=== PATIENT | female | born 1965 | race Hispanic/Latino ===

== ENCOUNTER 2023-05-23 17:04 | Emergency (ER) | payer OTHER ==
--- OUTSIDE RECORDS SUMMARY | 2023-05-23 17:08 | XMS REPORT | Continuity of Care Document ---
:1965 Author Organization [facility] t Address [address] [place] [address] [place] [id number] Care Team Providers Name Role Phone DOCTOR UNASSIGNED, NO NAME Primary Care Physician UnavailJing Concepcion Attending Clinician Pob, Adc Lab Main Attending Clinician Unavailable JING RICHEY Attending Clinician Unavailable Doctor Unassigned, [place] Attending Clinician Unavailable JING RICHEY Admitting Clinician Unavailable Payers Payer Name Policy Type Policy Number Effective Date Expiration Date S ource Problems This patient has no known problems. Allergies, Adverse Reactions, Alerts Allergy Allergy Status Severity Reaction(s) Onset Inactive Treating Comm ents Source Name Type Date Date Clinician Sulfa Propensi Active Rash Univers (Sulfona ty to 3-07 ity of mide adverse 00:00: [place] Antibiot reaction 00 Medica l ics) s Branch SULFA Drug Active Rash Univers (SULFONA Class 3-07 ity of MIDE 00:00: [place] ANTIBIOT 00 Medical ICS) Branch Social History Social Habit Start Date Stop Date Quantity Comments Source Exposure to Not sure [facility] SARS-CoV-2 [place] [facility] (event) Branch Sex Assigned At Universit y of [facility] Branch Alcohol intake 2019-05-13 2019-05-13 Current University 00:00:00 00:00:00 non-drinker of [facility] alcohol Branch (finding) Smoking Status Start Date Stop Date Source Never smoker [facility] Medical Branch Medications Ordered Filled Start Stop Current Ordering Indication Dosage Frequency Signature Comments Components Source Medication Medication Date Date Medication? Clinician (SIG) Name Name atorvastati Yes 20mg Take 20 mg Univers n (LIPITOR) 3-07 by mouth ity of 20 mg 21:54: at [place] tablet 02 bedtime. Medical Branch levothyroxi 0 Yes 50ug Take 50 Uni vers ne 3-07 mcg by ity of (SYNTHROID) 21:54: mouth [place] 50 mcg 02 every Medical tablet morning. Branch Cholecalcif Yes Take by Uni vers ankita, 3-07 mouth ity of Vitamin D3, 21:54: weekly. Dann as (REPLESTA) 02 Medical 50,000 unit Branch [facility] IBUPROFEN Yes Take by Unive rs (MOTRIN 3-07 mouth. ity of ORAL) 21:54: Indication [place] 02 s: as Medical needed Branch atorvastati Yes 20mg Take 20 mg Univers n (LIPITOR) 3-07 by mouth ity of 20 mg 21:54: at [place] tablet 02 bedtime. Medical Branch levothyroxi Yes 50ug Take 50 Uni vers ne 3-07 mcg by ity of (SYNTHROID) 21:54: mouth [place] 50 mcg 02 every Medical tablet morning. Branch Cholecalcif Yes Take by Uni vers ankita, 3-07 mouth ity of Vitamin D3, 21:54: weekly. Dann as (REPLESTA) 02 Medical 50,000 unit Branch [facility] IBUPROFEN Yes Take by Unive rs (MOTRIN 3-07 mouth. ity of ORAL) 21:54: Indication [place] 02 s: as Medical needed Branch atorvastati Yes 20mg Take 20 mg Univers n (LIPITOR) 3-07 by mouth ity of 20 mg 21:54: at [place] tablet 02 bedtime. Medical Branch levothyroxi Yes 50ug Take 50 Uni vers ne 3-07 mcg by ity of (SYNTHROID) 21:54: mouth [place] 50 mcg 02 every Medical tablet morning. Branch Cholecalcif Yes Take by Uni vers ankita, 3-07 mouth ity of Vitamin D3, 21:54: weekly. Dann as (REPLESTA) 02 Medical 50,000 unit Branch [facility] IBUPROFEN Yes Take by Unive rs (MOTRIN 3-07 mouth. ity of ORAL) 21:54: Indication [place] 02 s: as Medical needed Branch atorvastati Yes 20mg Take 20 mg Univers n (LIPITOR) 3-07 by mouth ity of 20 mg 21:54: at [place] tablet 02 bedtime. Medical Branch levothyroxi Yes 50ug Take 50 Uni vers ne 3-07 mcg by ity of (SYNTHROID) 21:54: mouth [place] 50 mcg 02 every Medical tablet morning. Branch Cholecalcif Yes Take by Uni vers ankita, 3-07 mouth ity of Vitamin D3, 21:54: weekly. Dann as (REPLESTA) 02 Medical 50,000 unit Branch [facility] IBUPROFEN Yes Take by Unive rs (MOTRIN 3-07 mouth. ity of ORAL) 21:54: Indication [place] 02 s: as Medical needed Branch atorvastati Yes 20mg Take 20 mg Univers n (LIPITOR) 3-07 by mouth ity of 20 mg 21:54: at [place] tablet 02 bedtime. Medical Branch levothyroxi Yes 50ug Take 50 Uni vers ne 3-07 mcg by ity of (SYNTHROID) 21:54: mouth [place] 50 mcg 02 every Medical tablet morning. Branch Cholecalcif Yes Take by Uni vers ankita, 3-07 mouth ity of Vitamin D3, 21:54: weekly. Dann as (REPLESTA) 02 Medical 50,000 unit Branch [facility] IBUPROFEN Yes Take by Unive rs (MOTRIN 3-07 mouth. ity of ORAL) 21:54: Indication [place] 02 s: as Medical needed Branch atorvastati Yes 20mg Take 20 mg Univers n (LIPITOR) 3-07 by mouth ity of 20 mg 21:54: at [place] tablet 02 bedtime. Medical Branch levothyroxi Yes 50ug Take 50 Uni vers ne 3-07 mcg by ity of (SYNTHROID) 21:54: mouth [place] 50 mcg 02 every Medical tablet morning. Branch Cholecalcif Yes Take by Uni vers ankita, 3-07 mouth ity of Vitamin D3, 21:54: weekly. Dann as (REPLESTA) 02 Medical 50,000 unit Branch [facility] IBUPROFEN Yes Take by Unive rs (MOTRIN 3-07 mouth. ity of ORAL) 21:54: Indication [place] 02 s: as Medical needed Branch Procedures Procedure Date / Time Performing Clinician Source Performed BI SCREENING TOMOSYNTHESIS 2020-07-13 20:52:00 Requisition, Vik r [facility] BILATERAL Medical Branch US PELVIS COMPLETE WITH 2020-06-30 23:47:27 Requisition, Paper [facility] [place] TRANSVAGINAL Medical Branch US RETROPERITONEAL 2020-06-24 19:39:38 Requisition, Paper [facility] COMPLETE Medical Branch ASSIGNMENT OF BENEFITS 2020-06-21 19:09:00 Doctor Unassigned, Un [facility] [place] Medical Branch Encounters Start End Encounter Admission Attending Care Care Encounter Source Date/Time Date/Time Type Type Clinicians Facility Department ID 2020-07-13 2020-07-13 [facility] [id number] Univers 14:20:00 23:59:00 Encounter Jing Arik [id number] ity of [place] [id number] [facility] [id number] [facility] 800 Branch 2020-07-13 2020-07-13 Fiscal Services Manager Conrado, Adc Lab Main [facility] [id number] Univers 09:58:48 10:13:48 Visit Jing Richey Arik [id number] ity [place] [id number] [facility] Professio [id number] [place] dical [facility] 353 Branch Building 2020-07-13 2020-07-13 Outpatient R [facility] [id number] Univers 00:00:00 00:00:00 JING jung [facility] 2020-06-30 2020-06-30 [facility] [id number] Univers 16:45:44 23:59:00 Encounter Jing Elise [id number] ity of [place] [id number] [facility] [id number] [facility] 806 Branch 2020-06-30 2020-06-30 Outpatient R [facility] [id number] Univers 00:00:00 00:00:00 JING jung of [place] [facility] 2020-06-24 2020-06-24 [facility] [id number] Univers 13:05:30 23:59:00 Encounter Jing Elise [id number] [id number] [place] [id number] [facility] 806 Branch 2020-06-24 2020-06-24 Outpatient Sherrie RICHEY [facility] [id number] Univers 13:05:30 23:59:00 JING jung [facility] 2020-06-21 2020-06-21 Fiscal Services Manager Conrado, Adc Lab Main [facility] 1.2.8 [id number] Univers 13:12:56 13:27:56 Visit Jing Richey [id number] ity [facility] [id number] [place] [facility] [id number] [place] dical [facility] 353 [facility] 2020-06-21 2020-06-21 Outpatient Sherrie RICHEY [facility] [id number] Univers 12:15:00 12:15:00 JING jung [facility] 2020-06-21 2020-06-21 Orders Doctor [facility] [id number] Univers 00:00:00 00:00:00 Only Unassigned, AIDAN [id number] ity of [place] [facility] [id number] Dann as [id number] [facility] 009 Branch 2011-10-05 2011-10-05 Outpatient [facility] [id number] Univers 00:00:00 15:53:32 5 ity of [place] [facility] 2011-08-10 2011-08-10 Outpatient [facility] [id number] Univers 00:00:00 16:15:30 2 ity of [place] [facility] 2011-07-13 2011-07-13 Outpatient [facility] [id number] Univers 00:00:00 15:33:09 3 ity of [place] [facility] 2010-08-22 2010-08-22 Outpatient [facility] [id number] Univers 00:00:00 00:00:00 0 ity of [place] [facility] 2010-06-28 2010-06-28 Outpatient [facility] [id number] Univers 00:00:00 15:44:51 8 ity of [place] [facility] 2010-06-07 2010-06-07 Outpatient [facility] [id number] Univers 00:00:00 11:18:28 0 [facility] [place] [facility] Branch Results Test Description Test Test Results Result Source Time Comments Comments BI SCREENING Examination:BI Universi ty of TOMOSYNTHESIS 23 SCREENING TOMOSYNTHESIS [place] [facility] BILATERAL 21:08:06 BILATERAL Branch History:Patient is 54 year old and is seen for: ?Visit for screening mammogram. Computer-aided detection (CAD) utilized. Comparisons: 05/13/2019 BI SCREENING TOMOSYNTHESIS BILATERAL, 05/05/2018 BI SCREENING TOMOSYNTHESIS BILATERAL, 01/13/2016 DIGITAL DIAGNOSTIC MAMMOGRAM, 10/23/2011 DIGITAL MAMMOGRAM, SCREENING, and 08/09/2010 DIGITAL MAMMOGRAM, SCREENING Findings:The breasts are heterogeneously dense, which may obscure small masses. There is no evidence of suspicious masses, calcifications, or other abnormal findings. Impression:No mammographic evidence of malignancy. Recommendation:Annual mammographic follow-up BI-RADS Category: Both 1 - Negative US RETROPERITONEAL 2020-06- 1. Unremarkable renal University [place] [address] ultrasound. 2. Left [facility] 19:47:54 adnexal region Branch heterogeneous hypoechoic mass. Recommend dedicatedpelvic ultrasound and/or MRI to further characterize.ULTRASOUND RENAL INDICATION: Gross hematuria COMPARISON: None. FINDINGS: Right kidney measures 9.3 x 5.5 x 4.2 cm. There is normal renal corticalechogenicity and corticomedullary differentiation. No hydronephrosis orrenal calculi. There is qualitatively normal perfusion on color dopplerinterrogation. Left kidney measures 8.7 x 4.9 x 3.7 cm. There is normal renal corticalechogenicity and corticomedullary differentiation. No hydronephrosis orrenal calculi. There is qualitatively normal perfusion on color dopplerinterrogation. Bladder is decompressed Hypoechoic mass within the left adnexal region measuring 4.7 x 4.8 cm(image 7). This mass does not definitely connect to the adjacent uterus andis concerning for adnexal lesion. Incidental note is made of a large shadowing calculus measuring 2.6 cmwithin partially contracted gallbladder (image 12). [facility], Radiant Results Inft User - 06/24/2020 1:48 PM CSTULTRASOUND RENALINDICATION: Gross hematuriaCOMPARISON: None.FINDINGS:Right kidney measures 9.3 x 5.5 x 4.2 cm. There is normal renal corticalechogenicity and corticomedullary differentiation. No hydronephrosis orrenal calculi. There is qualitatively normal perfusion on color dopplerinterrogation.Le ft kidney measures 8.7 x 4.9 x 3.7 cm. There is normal renal corticalechogenicity and corticomedullary differentiation. No hydronephrosis orrenal calculi. There is qualitatively normal perfusion on color dopplerinterrogation.Bl adder is decompressedHypoechoic mass within the left adnexal region measuring 4.7 x 4.8 cm(image 7). This mass does not definitely connect to the adjacent uterus andis concerning for adnexal lesion.Incidental note is made of a large shadowing calculus measuring 2.6 cmwithin partially contracted gallbladder (image 12).IMPRESSION1. Unremarkable renal ultrasound.2. Left adnexal region heterogeneous hypoechoic mass. Recommend dedicatedpelvic ultrasound and/or MRI to further characterize.
[2023-05-23] MEDS ORDERED: dexAMETHasone 10 MG/ML VIAL ONE (17:48)
[2023-05-23] MEDS ORDERED: KETOROLAC 30 MG/ML INJ ONE (17:48)
--- NOTE | 2023-05-23 18:25 | EDPHYS ---
Physician Documentation [facility] Name: Radha Cruz Age: 57 yrs Sex: Female : 1965 Arrival Date: 05/23/2023 Time: 17:04 Bed 13 Private MD: ED Physician Alyson Diez HPI: 05/23 18:29 This 57 yrs old Female presents to ER via Ambulatory with complaints of Back kb Pain, Low Back Pain. 18:29 The patient presents with pain that is acute. The symptoms are located in the left low kb back. The pain radiates. The problem was sustained from unknown cause. Onset: The symptoms/episode began/occurred started months ago and got worse after lifting child this morning. Modifying factors: The patient symptoms are alleviated by nothing, the patient symptoms are aggravated by any movement. Associated signs and symptoms: The patient has no apparent associated signs or symptoms. Severity of symptoms: At their worst the symptoms were moderate, in the emergency department the symptoms are unchanged. The patient has experienced similar episodes in the past. The patient has not recently seen a physician. Pt reports pain to left low back/upper buttock that started months ago, but has been worse today after lifting child. States she has been seen for this pain by PCP and given flexeril and meloxicam. Historical: - Allergies: 17:13 Sulfa (Sulfonamide Antibiotics); cm10 - PMHx: 17:13 Hypercholesterolemia; cm10 - PSHx: 17:13 Ligation of fallopian tube; cm10 - Immunization history:: Adult Immunizations unknown. - Social history:: Smoking status: Patient denies any tobacco usage or history of. ROS: 18:25 Constitutional: Negative for fever, chills, and weight loss, kb 18:25 Back: Positive for pain at rest, pain with movement, of the left low back, 18:25 All other systems are negative, Exam: 18:25 Constitutional: This is a well developed, well nourished patient who is awake, alert, kb and in no acute distress. Head/Face: Normocephalic, atraumatic. ENT: Moist Mucous membranes Cardiovascular: Regular rate Respiratory: Respirations even and unlabored. No increased work of breathing. Talking in full sentences Abdomen/GI: Soft, non-tender. No distention Skin: Warm, dry with normal turgor. Normal color. MS/ Extremity: Pulses equal, no cyanosis. Neurovascular intact. Full, normal range of motion. Neuro: Awake and alert, GCS 15, oriented to person, place, time, and situation. Moves all extremities. Normal gait. 18:25 Back: pain, that is moderate, of the left low back, and upper buttock, ROM is painful, vertebral tenderness, is not appreciated, Vital Signs: 17:14 BP 92 / 59; Pulse 96; Resp 18; Temp 97.5(TE); Pulse Ox 100% ; Weight 49.9 kg; Height 5 cm10 ft. 3 in. ; Pain 9/10; 18:32 BP 92 / 57; Pulse 70; Resp 16 S; Pulse Ox 100% on R/A; kc6 17:14 Body Mass Index 19.49 (49.90 kg, 160.02 cm) cm10 17:14 Pain Scale: Adult cm10 MDM: 17:13 Patient medically screened. kb 18:27 Differential diagnosis: sprain, strain, sciatica. Data reviewed: vital signs, nurses kb notes. Test considered but Not performed: Labs: urinalysis considered but pt has no urinary symptoms, pain is to upper buttock/lower back and worse with movement. X-ray: x-ray considered but pt has no bony tenderness. Counseling: I had a detailed discussion with the patient and/or guardian regarding the historical points, exam findings, and any diagnostic results supporting the discharge/admit diagnosis, the need for outpatient follow up, a family practitioner, to return to the emergency department if symptoms worsen or persist or if there are any questions or concerns that arise at home. Administered Medications: 17:40 Drug: Dexamethasone IM 10 mg IM once Route: IM; Site: left deltoid; kc6 18:21 Follow up: Response: No adverse reaction kc6 17:40 Drug: Ketorolac IM 30 mg IM once Route: IM; Site: right deltoid; kc6 18:21 Follow up: Response: No adverse reaction; Pain is decreased kc6 Disposition Summary: 05/23/23 18:24 Discharge Ordered Notes: Location: Home kb Condition: Stable kb Diagnosis - Low back pain kb Followup: kb - With: Emergency Department - When: As needed - Reason: Worsening of condition Followup: kb - With: Private Physician - When: 2 - 3 days - Reason: Recheck today's complaints, Continuance of care, Re-evaluation by your physician Discharge Instructions: - Discharge Summary Sheet kb - Musculoskeletal Pain kb - Sciatica, [id number] kb Forms: - Medication Reconciliation Form kb - Thank You Letter kb - Antibiotic Education kb - Prescription Opioid Use kb - Patient Portal Instructions kb - Leadership Thank You Letter kb Prescriptions: - Prednisone 20 mg Oral Tablet - take 1 tablet ORAL route once daily for 5 days; 5 tablet; Refills: 0, Product kb Selection Permitted - Cyclobenzaprine 5 mg Oral Tablet - take 1 tablet ORAL route 3 times per day As needed; 15 tablet; Refills: 0, kb Product Selection Permitted Signatures: Karina Maguire, Maxine Peterson RN RN kc6 Natalia Chin RN RN cm10 Corrections: (The following items were deleted from the chart) 18:31 18:29 Pt reports pain to left low back/upper buttock that started months ago, but has kb been worse today after lifting child. States she has been seen for this pain by PCP and given flexeril and mobic. . kb
--- NOTE | 2023-05-23 18:25 | ER ---
Nurse's Notes [facility] Name: Radha Cruz Age: 57 yrs Sex: Female : 1965 Arrival Date: 05/23/2023 Time: 17:04 Bed 13 Private MD: Diagnosis: Low back pain Presentation: 05/23 17:14 Chief complaint: Patient states: low back pain onset this morning. Pt states that she cm10 had bent over to crop picker her grandchild when the pain began. Coronavirus screen: Vaccine status: Patient reports receiving the 2nd dose of the covid vaccine. Client denies travel out of the [place] in the last 14 days. Ebola Screen: Patient denies travel to an Ebola-affected area in the 21 days before illness onset. No symptoms or risks identified at this time. Initial Sepsis Screen: Does the patient meet any 2 criteria? No. Patient's initial sepsis screen is negative. Does the patient have a suspected source of infection? No. Patient's initial sepsis screen is negative. Risk Assessment: Do you want to hurt yourself or someone else? Patient reports no desire to harm self or others. Onset of symptoms was May 23, 2023. 17:14 Method Of Arrival: Ambulatory cm10 17:14 Acuity: LUANN 3 cm10 Historical: - Allergies: 17:13 Sulfa (Sulfonamide Antibiotics); cm10 - PMHx: 17:13 Hypercholesterolemia; cm10 - PSHx: 17:13 Ligation of fallopian tube; cm10 - Immunization history:: Adult Immunizations unknown. - Social history:: Smoking status: Patient denies any tobacco usage or history of. Screenin:40 [facility] ED Fall Risk Assessment (Adult) History of falling in the last 3 months, kc6 including since admission No falls in past 3 months (0 pts) Confusion or Disorientation No (0 pts) Intoxicated or Sedated No (0 pts) Impaired Gait No (0 pts) Mobility Assist Device Used No (0 pt) Altered Elimination No (0 pt) Score/Fall Risk Level 0 - 2 = Low Risk. Abuse screen: Denies threats or abuse. Denies injuries from another. Nutritional screening: No deficits noted. Tuberculosis screening: No symptoms or risk factors identified. Assessment: 17:40 General: Appears in no apparent distress. comfortable, Behavior is calm, cooperative, kc6 appropriate for age. Pain: Complains of pain in left low back Pain does not radiate. Pain currently is 10 out of 10 on a pain scale. Is continuous. Neuro: Level of Consciousness is awake, alert, obeys commands, Oriented to person, place, time, situation, Appropriate for age. Cardiovascular: Capillary refill < 3 seconds. Respiratory: Airway is patent Trachea midline Respiratory effort is even, unlabored, Respiratory pattern is regular, symmetrical. GI: No signs and/or symptoms were reported involving the gastrointestinal system. : No signs and/or symptoms were reported regarding the genitourinary system. EENT: No signs and/or symptoms were reported regarding the EENT system. Derm: No signs and/or symptoms reported regarding the dermatologic system. Skin is intact, is healthy with good turgor, Skin is pink, warm \T\ dry. Musculoskeletal: No signs and/or symptoms reported regarding the musculoskeletal system. Circulation, motion, and sensation intact. Capillary refill < 3 seconds, Range of motion: intact in all extremities. 18:30 Reassessment: Patient appears in no apparent distress at this time. No changes from kc6 previously documented assessment. Patient and/or family updated on plan of care and expected duration. Pain level reassessed. Patient is alert, oriented x 3, equal unlabored respirations, skin warm/dry/pink. Vital Signs: 17:14 BP 92 / 59; Pulse 96; Resp 18; Temp 97.5(TE); Pulse Ox 100% ; Weight 49.9 kg; Height 5 cm10 ft. 3 in. ; Pain 9/10; 18:32 BP 92 / 57; Pulse 70; Resp 16 S; Pulse Ox 100% on R/A; kc6 17:14 Body Mass Index 19.49 (49.90 kg, 160.02 cm) cm10 17:14 Pain Scale: Adult cm10 ED Course: 17:09 Patient arrived in ED. im 17:12 [facility] Mag[facility]ire [facility]C [facility] kb 17:12 Alyson Diez MD is Attending Physician. kb 17:17 Triage completed. cm10 17:17 Arm band placed on Patient placed in an exam room, on a stretcher. cm10 17:18 Maxine Arnold RN is Primary Nurse. kc6 17:40 Patient has correct armband on for positive identification. Bed in low position. Call kc6 light in reach. Side rails up X 1. Adult w/ patient. Client placed on continuous cardiac and pulse oximetry monitoring. NIBP monitoring applied. 18:33 No provider procedures requiring assistance completed. Patient did not have IV access kc6 during this emergency room visit. Administered Medications: 17:40 Drug: Dexamethasone IM 10 mg IM once Route: IM; Site: left deltoid; kc6 18:21 Follow up: Response: No adverse reaction kc6 17:40 Drug: Ketorolac IM 30 mg IM once Route: IM; Site: right deltoid; kc6 18:21 Follow up: Response: No adverse reaction; Pain is decreased kc6 Medication: 18:33 VIS not applicable for this client. kc6 Outcome: 18:24 Discharge ordered by . kb 18:33 Discharged to home ambulatory, with family, kc6 18:33 Condition: improved 18:33 Discharge instructions given to patient, Instructed on discharge instructions, follow up and referral plans. medication usage, Demonstrated understanding of instructions, follow-up care, medications, Prescriptions given X 2, 18:33 Patient left the ED. kc6 Signatures: Karina Maguire, MACHINE ADJUSTER-C MACHINE ADJUSTER-Maxine Eduardo, RN RN kc6 Lolly Flores Clarissa, RN RN cm10
[2023-05-23 18:44] VITALS: TEMP 97.5; O2SAT 100
[2023-05-23 18:46] VITALS: BP 92/57
== END 2023-05-23 18:33 | disposition home or self-care (01) ==
LOC: ER 17:04
DX: M54.50 Low back pain, unspecified (principal); Z88.2 Allergy status to sulfonamides
CPT/HCPCS: 96372; 99284; J1100